=== PATIENT | female | born 1950 | race Caucasian/White ===

== ENCOUNTER → 2024-04-17 | Outpatient (REF) | payer MEDICARE ==
[~2024-04-17] MED LIST: BUMETANIDE2 MG PO; DEXAMETHASONE SOD PHOS 10 MG/1 ML VIAL ONE; GLYCOPYRROLATE INJ 0.2 MG/ML VIAL ONE; HYDROXYCHLOROQ200 MG PO; LACTATED RINGER'S 1,000 ML ONE; LEXAPRO20 MG PO; LIDOCAINE HCL 2% LOCAL INJ 5 ML SDV VIAL INJ ONE; LYRICA75 MG PO; NEOSTIGMINE 1 MG/ML 10ML VIAL ONE; PLAVIX75 MG PO; POTASSIUM CHLO20 ME1 PO; PRAVASTATIN SOD80 MG PO; PROPOFOL IV EMULSION 10 MG/ML 20 ML VIAL ONE; ROCURONIUM BROMIDE 0 ML IV ONE; SOTALOL80 MG PO; TOPAMAX100 MG PO; TYLENOL EXTRA500 MG PO; WARFARIN SODIUM2 MG PO
== END | disposition home or self-care (01) ==
LOC: LAB 05:00 → OR 08:33 → EDSTATUS 09:30
PROVIDERS: ATTEND Otolaryngology Otolaryngology/Facial Plastic Surgery
DX: J32.9 Chronic sinusitis, unspecified (principal); Z53.8 Procedure and treatment not carried out for other reasons
CPT/HCPCS: 36415; 82948; J7121; J1100; J2003; J2710

== ENCOUNTER → 2024-04-24 | Day surgery (SDC) | payer MEDICARE ==
[~2024-04-24] MED LIST changes: +ACETAMINOPHEN 1000 MG/100 ML 100 ML IV ONE; -DEXAMETHASONE SOD PHOS 10 MG/1 ML VIAL ONE; +DEXAMETHASONE SOD PHOS INJ 4 MG/ML SDV ONE; +FENTANYL CITRATE/PF 100MCG/2 ML INJ ONE; -GLYCOPYRROLATE INJ 0.2 MG/ML VIAL ONE; -LACTATED RINGER'S 1,000 ML ONE; -NEOSTIGMINE 1 MG/ML 10ML VIAL ONE; +ONDANSETRON HCL INJ 2MG/ML 2ML 2 MG/ML VIAL ONE; -ROCURONIUM BROMIDE 0 ML IV ONE; +ROCURONIUM BROMIDE 1 ML IV ONE; +SUGAMMADEX SODIUM 200 MG/2 ML VIAL IV ONE
[2024-04-24] MEDS: LACTATED RINGER'S 1,000 ML ONE (13:42)
[2024-04-24 13:52] LABS: INR 0.94; PROTHROMBIN TIME 13.2 seconds (11.9-14.5)
[2024-04-24 13:53] LABS: PARTIAL THROMBOPLASTIN TIME 29.7 seconds (23.8-35.5)
[2024-04-24] MEDS: ACETAMINOPHEN 1000 MG/100 ML 100 ML IV ONE (15:55)
[2024-04-24] MEDS: FENTANYL CITRATE/PF 100MCG/2 ML INJ ONE (16:03)
[2024-04-24 16:35] VITALS: BP 156/72; PULSE 68; RESP 18; O2SAT 95
== END | disposition home or self-care (01) ==
LOC: OR 11:42
PROVIDERS: ATTEND Otolaryngology Otolaryngology/Facial Plastic Surgery
DX: J32.1 Chronic frontal sinusitis (principal); J32.2 Chronic ethmoidal sinusitis; J32.3 Chronic sphenoidal sinusitis; J32.0 Chronic maxillary sinusitis; J33.9 Nasal polyp, unspecified; J34.89 Other specified disorders of nose and nasal sinuses; E11.9 Type 2 diabetes mellitus without complications; I25.10 Atherosclerotic heart disease of native coronary artery without angina pectoris; I48.91 Unspecified atrial fibrillation; I11.0 Hypertensive heart disease with heart failure; I50.9 Heart failure, unspecified; Z88.6 Allergy status to analgesic agent; Z79.01 Long term (current) use of anticoagulants; Z79.02 Long term (current) use of antithrombotics/antiplatelets; Z79.899 Other long term (current) drug therapy; Z95.0 Presence of cardiac pacemaker; Z95.5 Presence of coronary angioplasty implant and graft
CPT/HCPCS: 31259; 31267; 31276; 36415; 85610; 85730; 88304; J0131; J1100; J2003; J2405; J2704; J3010; J7121